=== PATIENT | male | born 1980 | race Caucasian/White ===

== ENCOUNTER 2022-11-27 10:24 | Day surgery (SDC) | payer OTHER ==
[~2022-11-27 10:24] MED LIST: Acetaminophen 325 MG Tab PO SCH; Lidocaine 1% 5 ML VIAL ONE; Lidocaine 1%/Sod Bicarbonate in NS 8.4% 1 ML Syringe IDERM PRN; Midazolam 1 MG/ML 2 ML SDV ONE; Morphine 8 MG, EPINEPHrine 0.3 MG, Cefuroxime 750 MG, Ketorolac 30 MG, Sodium Chloride ... PRN; Ondansetron 4 MG/2 ML SDV ONE; Pregabalin 25 MG Cap PO SCH; Propofol 200 MG/20 ML SDV ONE; Sodium Chloride 0.9% 10 ML Syringe FLUSH PRN; Sodium Chloride 0.9% 10 ML Syringe FLUSH SCH; ceFAZolin 2 GM Vial ONE; fentaNYL 100 MCG/2 ML SDV ONE; oxyCODONE ER 10 MG TAB.ER PO SCH
[2022-11-27] MEDS ORDERED: Vancomycin 1 GM SDV ONE (10:45)
[2022-11-27] MEDS ORDERED: Tranexamic Acid 1,000 MG/10 ML Vial ONE (10:45)
[2022-11-27] MEDS: Lactated Ringers 1,000 ML IV SCH ×2 (10:50→17:25)
[2022-11-27] MEDS ORDERED: Ondansetron 4 MG/2 ML SDV IVPUSH PRN (11:15)
[2022-11-27] MEDS ORDERED: EPINEPHrine 1 MG/ML SDV ONE (11:32)
[2022-11-27] MEDS ORDERED: Ropivacaine 0.5% 5 MG/ML 30 ML SDV ONE (11:32)
[2022-11-27] MEDS ORDERED: Dexamethasone 4 MG/ML 5 ML MDV ONE (11:35)
[2022-11-27] MEDS ORDERED: Dexmedetomidine 200 MCG/2 ML SDV ONE (11:35)
[2022-11-27] MEDS ORDERED: Lactated Ringers 1,000 ML ONE ×2 (12:36→13:35)
[2022-11-27] MEDS ORDERED: Ketorolac 30 MG/ML SDV ONE (13:29)
[2022-11-27] MEDS ORDERED: Propofol 200 MG/20 ML SDV ONE (13:42)
[2022-11-27] MEDS ORDERED: Sodium Chloride 0.9% 500 ML IV ONE (13:45)
[2022-11-27] MEDS: fentaNYL 100 MCG/2 ML SDV IVPUSH PRN ×2 (14:27→14:58)
[2022-11-27] MEDS: HYDROmorphone 0.5 MG/0.5 ML Syringe IVPUSH PRN ×2 (14:30→14:55)
[2022-11-27] MEDS ORDERED: oxyCODONE 5 MG Tab PO PRN (14:38)
[2022-11-27] MEDS ORDERED: Haloperidol Lactate 5 MG/ML SDV IVPUSH ONE (17:48)
== END 2022-11-27 20:50 | disposition home or self-care (01) ==
LOC: JD.SDS 10:24
PROVIDERS: ATTEND Orthopaedic Surgery
DX: M17.12 Unilateral primary osteoarthritis, left knee (principal); M22.42 Chondromalacia patellae, left knee; G89.29 Other chronic pain; I44.0 Atrioventricular block, first degree; Z87.891 Personal history of nicotine dependence; Z79.899 Other long term (current) drug therapy
CPT/HCPCS: 0055T; 27442; 64447; 73560; 97110; 97116; 97161; A9270; C1713; C1776; J0171; J0690; J0697; J1100; J1170; J1630; J1885; J2250; J2270; J2405; J2704; J2795; J3010; J3370; J7040; J7120; 01392; J3490